=== PATIENT | female | born 1950 | race Caucasian/White ===

== ENCOUNTER 2017-06-23 05:54 | Day surgery (SDC) | payer MEDICARE, OTHER ==
[~2017-06-23] VITALS: Ht 170.2 cm; Wt 98.0 kg
--- NOTE | ~2017-06-23 | EGD ---
EGD REPORT [facility] [address] [place] [place] [address] NAME: ISIDRA MARTINEZ : [birth year] STATUS : [facility]#: [id number] AGE: 66 ADM/REG DATE : 06/23/17 MR#: [id number] REPORT SERV DATE: 06/27/17 DICTATED BY: MARILOU DENISE DATE: 06/27/17 REPORT STATUS : Draft TRANSCRIBED BY: [facility] DATE: 06/27/17 [facility] Patient Name: Isidra Martinez Date of : 1950 Attending MD: MARILOU DENISE, Procedure Date No Time: 06/23/2017 Procedure: Colonoscopy Indications: High risk colon cancer surveillance: Personal history of colonic polyps Referring MD: LADAN MONTERO Medicines: Monitored Anesthesia Care Complications: No immediate complications. Estimated blood loss: None. Procedure: Pre-Anesthesia Assessment: - ASA Grade Assessment: II - A patient with mild systemic disease. After I obtained informed consent, the scope was passed under direct vision. Throughout the procedure, the patient's blood pressure, pulse, and oxygen saturations were monitored continuously. The CF [id number] was introduced through the anus and advanced to the cecum, identified by appendiceal orifice and ileocecal valve. The colonoscopy was performed without difficulty. The patient tolerated the procedure well. The quality of the bowel preparation was good. The ileocecal valve, appendiceal orifice and rectum were photographed. Findings: The perianal and digital rectal examinations were normal. Internal hemorrhoids were found during retroflexion and were Grade I (internal hemorrhoids that do not prolapse). The exam was otherwise without abnormality on direct and retroflexion views. Impression: - Internal hemorrhoids. - The examination was otherwise normal on direct and retroflexion views. Recommendation: - Patient has a contact number available for emergencies. The signs and symptoms of potential delayed complications were discussed with the patient. Return to normal activities tomorrow. Written discharge instructions were provided to the patient. - Return to previous diet. - Continue present medications. - Repeat colonoscopy in 5 years for surveillance. EGD REPORT [facility] [address] [place], [place] [address]. [address] NAME: ISIDRA MARTINEZ : [birth year] STATUS : [facility]#: [id number] AGE: 66 ADM/REG DATE : 06/23/17 MR#: [id number] REPORT SERV DATE: 06/27/17 DICTATED BY: MARILOU DENISE DATE: 06/27/17 REPORT STATUS : Draft TRANSCRIBED BY: [employer] DATE: 06/27/17 Procedure Code(s): --- Professional --- G0105, Colorectal cancer screening; colonoscopy on individual at high risk Diagnosis Code(s): --- Professional --- K64.0, First degree hemorrhoids Z86.010, Personal history of colonic polyps CPT copyright 2013 [employer]. All rights reserved. The codes documented in this report are preliminary and upon welder and fitter review may be revised to meet current compliance requirements. MARILOU DENISE, 06/23/2017 7:52 AM Number of Addenda: 0 Note Initiated On: 06/23/2017 7:04 AM Scope Withdrawal Time 0 hours 12 minutes 1 second [address] [place] [address]
[~2017-06-23 05:54] MED LIST: ADVIL; ASAB PO; CALCIUM; CHILDREN PO; L40 PO; METPAKSF PO; MICRO-K10 MEQ PO; PRIN10 PO; VITAMIN D1000 UNI1 PO
== END 2017-06-23 23:59 | disposition home or self-care (01) ==
LOC: DMU 05:54
PROVIDERS: Internal Medicine Gastroenterology
PROC: 0DJD8ZZ Inspection of Lower Intestinal Tract, Via Natural or Artificial Opening Endoscopic (ICD-10-PCS; principal; 2017-06-23 08:00)
DX: Z12.11 Encounter for screening for malignant neoplasm of colon (principal); K64.0 First degree hemorrhoids; K44.9 Diaphragmatic hernia without obstruction or gangrene; I10 Essential (primary) hypertension; H26.9 Unspecified cataract; Z90.710 Acquired absence of both cervix and uterus; Z88.0 Allergy status to penicillin; Z88.2 Allergy status to sulfonamides; Z88.1 Allergy status to other antibiotic agents; Z88.8 Allergy status to other drugs, medicaments and biological substances; Z91.041 Radiographic dye allergy status; Z98.51 Tubal ligation status; Z90.49 Acquired absence of other specified parts of digestive tract; Z90.89 Acquired absence of other organs; Z86.010 Personal history of colon polyps; Z79.82 Long term (current) use of aspirin; Z79.899 Other long term (current) drug therapy; Z98.890 Other specified postprocedural states